=== PATIENT | male | born 2000 | race Caucasian/White ===

== ENCOUNTER 2022-02-15 07:02 | Day surgery (SDC) | payer BC, SELFPAY ==
[2022-02-15] VITALS (11 sets, daily range): BP systolic 114–169; BP diastolic 63–99; PULSE 42–56; RESP 10–18; TEMP 36.3–36.9; O2SAT 100
--- NOTE | ~2022-02-15 | CT_ITS ---
EXAMINATION: CT abdomen pelvis w con INDICATION: Abdominal pain and nausea TECHNIQUE: Computed tomographic images of the abdomen and pelvis were obtained after the administrati on of 100 cc of Omnipaque 350 intravenous contrast. The dose-length product (DLP) was 273.73 mGy-cm. Automated exposure control and iterative reconstruction technique were employed. COMPARISON: None available FINDINGS: The lung bases are clear. The heart size is normal. The liver, pancreas, gallbladder, and a drenal glands are normal. There is a 12 mm cyst of the spleen. The kidneys are unremarkable. No patho logically enlarged abdominal or pelvic lymph nodes are identified. There is no free intraperitoneal g as or evidence of bowel obstruction. There is mild wall thickening of the dilated appendix which rc ures up to 8 mm. IMPRESSION: 1. Mildly dilated appendix consistent with early acute appendicitis. Correlate for right lower quadra nt pain. Reviewed, dictated and finalized at location A. IMPRESSION: 1. Mildly dilated appendix consistent with early acute appendicitis. Correlate for right lower quadrant pain.
--- NOTE | 2022-02-15 07:29 | ED.ABDPAIN ---
HPI - Abdominal Pain General Chief Complaint: Abdominal Pain Stated Complaint: epigastric pain/upper abdominal pain Time Seen by Provider: 02/15/22 07:04 Source: RN notes reviewed History of Present Illness HPI narrative: Patient presents emergency room from home for abdominal pain. Patient states has had pain for the past 2 days pain is up and look in epic gastric and left upper quadrant does not radiate pain is described as burning in nature. States that has been associated with nausea and vomiting x1. Denies any fevers or chills chest pain shortness of breath diarrhea or any other symptoms states he tried taking ibuprofen for the pain last night with minimal Related Data Home Medications Medication Instructions Recorded Confirmed No Home Medications 02/15/22 02/15/22 Allergies Allergy/AdvReac Type Severity Reaction Status Date / Time No Known Allergies Allergy Verified 02/15/22 07:02 Review of Systems Review of Systems: Gen.: Denies fevers or chills ENT: Denies congestion Respiratory: Denies shortness of breath or cough CV: Denies chest pain or palpitations GI: See HPI Musculoskeletal: Denies back pain or muscle pain Neuro: Denies numbness, tingling, weakness or focal weakness Skin: Denies rash Except as documented, all other systems reviewed and negative PMFSH Past Medical History Medical History (Updated 02/15/22 @ 11:22 by Sloan Banks DO) Patient denies significant medical history Social History Social History (Updated 02/15/22 @ 07:30 by Sloan Banks DO) Smoking status: Never smoker Exam Narrative: APPEARANCE: No acute distress, nontoxic, resting in bed HEENT: Normocephalic, atraumatic, OMM RESPIRATORY: No respiratory distress, clear to auscultation bilaterally with no rhonchi wheezing or rales CARDIOVASCULAR: RRR s murmur ABDOMINAL: Soft nondistended tender palpation epigastric and left upper quadrant no tenderness in right upper quadrant, right lower quadrant left lower quadrant no rebound or guarding MUSCULOSKELETAl: Moves all extremities. No clubbing, cyanosis or edema. NEURO: Awake and alert. Following commands, speech normal, no focal deficits SKIN:: Warm, dry. Normal Color PSYCHIATRIC: Normal affect/mood Course Course Emergency Course: Following CT scan examined patient patient is tender in the right lower quadrant Discussed with Dr. Kaba that this time of Ruth came down to evaluate the patient request patient started on Zosyn ruth down to evaluate patient discussed with Dr. Kaba will take patient to the OR at this time Discussed with patient plan for or in agreement Vital Signs Vital signs: Vital Signs Temperature 98.4 F 02/15/22 07:08 Pulse Rate 48 L 02/15/22 07:08 Respiratory Rate 18 02/15/22 07:08 Blood Pressure 158/94 H 02/15/22 07:08 Pulse Oximetry 100 02/15/22 07:08 Oxygen Delivery Room Air 02/15/22 07:08 Temperature 98.4 F 02/15/22 07:08 Pulse Rate 51 L 02/15/22 11:01 Respiratory Rate 18 02/15/22 11:01 Blood Pressure 169/99 H 02/15/22 11:01 Pulse Oximetry 100 02/15/22 11:01 Oxygen Delivery Room Air 02/15/22 07:08 MDM - Abdominal Pain Lab Data Result diagrams: 02/15/22 07:19 02/15/22 07:19 Labs: Lab Results 02/15/22 02/15/22 02/15/22 Range/Units 07:19 07:19 07:19 WBC 5.0 (4.5-10.0) K/mm3 RBC 5.41 (4.6-6.20) M/mm3 Hgb 16.0 (14.0-18.0) g/dL Hct 46.5 (42.0-52.0) % MCV 86.0 (80-100) fl MCH 29.6 (26-34) pg MCHC 34.4 (32-36) g/dl RDW 12.6 (11.5-14.5) % Plt Count 192 (150-375) k/mm3 MPV 10.3 (7.4-10.4) fl Immature Gran % (Auto) 0.2 (0-0.5) % Neut % (Auto) 65.4 (45.5-73.1) % Lymph % (Auto) 22.0 (18.3-44.2) % Blount % (Auto) 9.8 H (2.6-8.5) % Eos % (Auto) 2.0 (0-4.4) % Baso % (Auto) 0.6 (0.2-1.2) % Lymph # (Auto) 1.10 (0.9-3.2) K/mm3 Blount # (Auto) 0.5 (0.1-0.6) K/mm3 Eos # (Auto
[2022-02-15 07:37] LABS: Basophils Percent Auto 0.6 % (0.2-1.2); Eosinophils Absolute Auto 0.1 K/mm3 (0-0.3); Hematocrit 46.5 % (42.0-52.0); Immature Granulocyte Absolute 0.01 K/mm3 (0.00-0.031); Immature Granulocyte Percent A 0.2 % (0-0.5); Mean Corpuscular HGB Conc 34.4 g/dl (32-36); Mean Corpuscular Hemoglobin 29.6 pg (26-34); Mean Platelet Volume 10.3 fl (7.4-10.4); Monocytes Absolute Auto 0.5 K/mm3 (0.1-0.6); Monocytes Percent Auto 9.8 % (2.6-8.5); Neutrophils Absolute Auto 3.3 K/mm3 (1.3-6.7); Neutrophils Percent Auto 65.4 % (45.5-73.1); Platelet Count Result 192 k/mm3 (150-375); Red Blood Count 5.41 M/mm3 (4.6-6.20); Red Cell Distribution Width 12.6 % (11.5-14.5)
[2022-02-15 07:41] LABS: Appearance Urine Clear (Clear); Bilirubin Urine Negative (Negative); Blood Urine Negative (Negative); Color Urine Yellow (Yellow); Glucose Urine UA Negative (Negative); Ketones Urine Negative (Negative); Leukocyte Esterase Ur 1+ LEU/UL (Negative); Nitrate Urine Negative (Negative); Protein Urine Negative (Negative); Specific Grav Ur 1.025 (1.001-1.035)
[2022-02-15 07:47] LABS: Alanine Aminotransferase 31 U/L (6-50); Alkaline Phosphatase 74 U/L (38-126); Anion Gap 12 mmol/L (8-16); Aspartate Amino Transferase 38 U/L (17-59); Bilirubin,Total 1.6 mg/dL (0.2-1.3); Blood Urea Nitrogen 7 mg/dL (9-20); Calcium 9.6 mg/dL (8.4-10.2); Carbon Dioxide 27 mmol/L (22-30); Chloride 100 mmol/L (98-107); Estimated CRCL calculation 114 ml/min; Estimated Glomerular Filt Rate > 60; Glucose 106 mg/dL (65-110); Lipase 80 U/L (23-300); Potassium 3.8 mmol/L (3.4-5.0); Sodium 139 mmol/L (137-145)
[2022-02-15 07:55] LABS: Add Urine Microscopic? YES; Amorphous Sediment Urine Few; Mucus Urine Rare /lpf; RBC Urine 0-2 /hpf (0-2)
[2022-02-15] MEDS: SODIUM CHLORIDE 0.9% IV 1,000 ML 999 ML IV CONT (09:33)
[2022-02-15] MEDS: KETOROLAC 30 MG/ML VIAL (*BKC) IV PUSH (09:33)
--- NOTE | 2022-02-15 11:49 | PM.HPGS ---
History of Present Illness History of Present Illness Consent: Risks, benefits, and alternatives have been discussed and questions answered. Patient agrees to proceed with procedure. Chief complaint: epigastric pain/upper abdominal pain Narrative: Abimael Ha is a 22 year old male who we have been asked to see in the ER for surgical evaluation of possible acute appendicitis. He first noticed pain 2 days ago around 3:00 p.m. in the afternoon. Initially, his pain was in the epigastric and left upper quadrant area. He thought it may have been related to something he ate for lunch, so he forced himself to vomit. His pain did not improve. That night, he continued to have the same pain and it woke him up from sleep a few times throughout the night. Yesterday, he felt the pain was slightly better in the morning, but around 3:00 p.m. yesterday the pain became more severe. This has persisted and he decided come into the ER for further evaluation. CT scan of the abdomen and pelvis shows an 8 mm appendix with mild wall thickening, suggesting possible acute early appendicitis. His labs are unremarkable. He is now seen in the ER with his parents at the bedside. He reports over the past few hours his pain has now localized to the right lower quadrant. Prior to today, he felt it was more diffuse across his upper abdomen. He had no relief with a GI cocktail given in the ER, but did feel his pain started improving slightly after the Toradol he was given. He denies fever or chills. Denies ever having this pain in the past. He had 1 loose stool yesterday, but denies diarrhea. No previous abdominal surgeries. Review of Systems Review of Systems: All systems reviewed & are unremarkable except as noted in HPI and below Constitutional: Constitutional: Reports no additional constitutional complaints, Denies chills, Denies fatigue, Denies fever(s), Reports headache(s) (yesterday, resolved with tylenol) and Reports poor appetite Eyes: Eyes: Reports no additional eye complaints ENT: Reports system reviewed and no additional complaints, except as documented Cardiovascular: Cardiovascular: Reports no additional cardiovascular complaints, Denies chest pain and Denies leg edema Respiratory: Respiratory: Reports no additional respiratory complaints, Denies cough and Denies dyspnea Gastrointestinal: Gastrointestinal: Reports as per HPI, Reports no additional gastrointestinal complaints, Reports abdominal pain, Denies melena, Denies hematochezia, Denies coffee ground emesis, Denies constipation, Denies diarrhea, Reports loose stools, Denies nausea and Reports vomiting Genitourinary: Genitourinary: Reports no additional male genitourinary complaints Musculoskeletal: Musculoskeletal: Reports no additional musculoskeletal complaints Integumentary/Breasts: Skin/Breast: Reports system reviewed and no additional complaints, except as docu Neurologic: Reports system reviewed and no additional complaints, except as documented, Denies dizziness, Denies focal weakness, Denies numbness and Denies tingling PMFSH Past Medical History Medical History Patient denies significant medical history Surgical History Surgical History No pertinent past surgical history Family History Family History Other No pertinent family history Social History Social History Smoking status: Never smoker Alcohol intake: current Alcohol use details: Occasional Substance use: never Occupation/Education: occupation Additional occupation/education comments: Works in a [employer] Gender identity (if verbalized by the patient): Male Meds Home Medications and Allergies Home Medications Medication Instructions Recorded Confirmed Type No Home Medica
--- NOTE | 2022-02-15 11:52 | WPDANESEPPF ---
Anes - Initial Pre Proc Eval Procedure: Operation Date: 02/15/22 14:30 Proposed Procedures p Laparoscopic Appendectomy; Possible Open - Richard Kaba MD Date/Time: 02/15/22 11:52 Surgeon: Richard Kaba MD Pre Op Diagnosis: epigastric pain/upper abdominal pain Patient Data Age: 22 Gender: M Height: 1.83 m Weight: 72 kg Last Vital Signs Temp 36.9 C 02/15/22 07:08 Pulse 51 L 02/15/22 11:01 Resp 18 02/15/22 11:01 BP 169/99 H 02/15/22 11:01 Pulse Ox 100 02/15/22 11:01 O2 Del Method Room Air 02/15/22 07:08 Allergies Allergy/AdvReac Type Severity Reaction Status Date / Time No Known Allergies Allergy Verified 02/15/22 07:02 Home Medications Medication Instructions Recorded Confirmed Type No Home Medications 02/15/22 02/15/22 History Laboratory Tests 02/15/22 02/15/22 02/15/22 07:19 07:19 07:19 WBC 5.0 K/mm3 K/mm3 (4.5-10.0) RBC 5.41 M/mm3 M/mm3 (4.6-6.20) Hgb 16.0 g/dL g/dL (14.0-18.0) Hct 46.5 % % (42.0-52.0) MCV 86.0 fl fl (80-100) MCH 29.6 pg pg (26-34) MCHC 34.4 g/dl g/dl (32-36) RDW 12.6 % % (11.5-14.5) Plt Count 192 k/mm3 k/mm3 (150-375) MPV 10.3 fl fl (7.4-10.4) Immature Gran % (Auto) 0.2 % % (0-0.5) Neut % (Auto) 65.4 % % (45.5-73.1) Lymph % (Auto) 22.0 % % (18.3-44.2) Gilpin % (Auto) 9.8 % H % (2.6-8.5) Eos % (Auto) 2.0 % % (0-4.4) Baso % (Auto) 0.6 % % (0.2-1.2) Lymph # (Auto) 1.10 K/mm3 K/mm3 (0.9-3.2) [place] # (Auto) 0.5 K/mm3 K/mm3 (0.1-0.6) Eos # (Auto) 0.1 K/mm3 K/mm3 (0-0.3) Baso # (Auto) 0.0 K/mm3 K/mm3 (0.0-0.1) Abs Immat Gran (auto) 0.01 K/mm3 K/mm3 (0.00-0.031) Absolute Neuts (auto) 3.3 K/mm3 K/mm3 (1.3-6.7) Absolute Nucleated RBC 0.0 K/mm3 K/mm3 (0.0-0.012) Nucleated RBC % 0.0 % % (0.0-0.2) Sodium 139 mmol/L mmol/L (137-145) Potassium 3.8 mmol/L mmol/L (3.4-5.0) Chloride 100 mmol/L mmol/L (98-107) Carbon Dioxide 27 mmol/L mmol/L (22-30) Anion Gap 12 mmol/L mmol/L (8-16) BUN 7 mg/dL L mg/dL (9-20) Creatinine 0.90 mg/dL mg/dL (0.7-1.3) Estim Creat Clear Calc 114 ml/min ml/min Estimated GFR > 60 (59 - ) Glucose 106 mg/dL mg/dL (65-110) Calcium 9.6 mg/dL mg/dL (8.4-10.2) Total Bilirubin 1.6 mg/dL H mg/dL (0.2-1.3) AST 38 U/L U/L (17-59) ALT 31 U/L U/L (6-50) Alkaline Phosphatase 74 U/L U/L (38-126) Total Protein 8.0 g/dL g/dL (6.3-8.2) Albumin 5.0 g/dL g/dL (3.5-5.1) Lipase 80 U/L U/L (23-300) Urine Color Yellow (Yellow) Urine Appearance Clear (Clear) Urine pH 7.0 (5.0-9.0) Ur Specific Moodus 1.025 (1.001-1.035) Urine Protein Negative mg/dL mg/dL (Negative) Urine Glucose (UA) Negative mg/dL mg/dL (Negative) Urine Ketones Negative mg/dL mg/dL (Negative) Ur Blood (Man) Negative (Negative) Urine Nitrate Negative (Negative) Urine Bilirubin Negative (Negative) Urine Urobilinogen 1.0 mg/dL mg/dL (<2.0) Leukocyte Esterase Rfl 1+ ALEC/UL H ALEC/UL (Negative) Urine RBC 0-2 /hpf /hpf (0-2) Urine WBC 4-6 /hpf H /hpf Amorphous Sediment Few H (None) Urine Mucus Rare /lpf /lpf Patient hx anesthesia problems: none Family hx anesthesia problems: none Results Review: All pre-operative results and documents have been reviewed as part of the pre-operative evaluation. [facility] Past Medical History Medical History (Updated 02/15/22 @ 11:22 by Sloan Banks DO) Patient denies s
--- NOTE | 2022-02-15 12:08 | WPDHPUPDATE1 ---
History and Physical Update Update Date/Time: 02/15/22 12:08 History and Physical has been reviewed, including an updated exam of the patient. There are NO changes in the patient's condition. Risks, benefits, and alternatives have been discussed and questions answered. Patient agrees to proceed with procedure.
[2022-02-15] MEDS: LACTATED RINGERS 1,000 ML 30 ML IV CONT ×2 (12:12→13:26)
[2022-02-15] MEDS: BUPIVACAINE/EPINEPHRINE 0.25% 50 ML VIAL INFILTRATE (13:07)
--- NOTE | 2022-02-15 13:24 | P.OP_ITS ---
Procedure Note - Detailed Date of Procedure 02/15/22 Pre-op Diagnosis Acute appendicitis Post-op Diagnosis Same Procedure Performed Laparoscopic appendectomy Surgeon Richard Kaba MD [employer] Tracy Rangel [facility] Anesthesia General and Local (0.25% Marcaine with epinephrine) Indications Patient is a 22-year-old man who has been having epigastric abdominal pain for about 2 days. Today this pain moved in to start a new localizing right lower quadrant. He came to the emergency room. He was noted to have tenderness in the right lower quadrant but his white blood cell count was normal. CT scan showed a dilated appendix of 8 mm with some wall thickening. He is taken to surgery now for laparoscopic appendectomy. Findings Appendix was dilated at its distal 2/3 with more inflammation at the distal aspect of the appendix then the rest of the appendix. It appeared to be early acute appendicitis. Description of Procedure The patient was taken to surgery and induced into general anesthesia. The abdomen is prepped and draped. Trocars were placed in the usual fashion using local anesthetic and applied Medical optical trocars. A 5 mm camera was used. Patient was placed in Trendelenburg with the right-side elevated. The appendix was found and was freed from some adhesions to the right pelvic sidewall. It was then elevated and examined. Findings were as above. Dissection was carried out in the mesoappendix. The appendiceal artery was dissected and was then thoroughly cauterized and divided. We skeletonized the base of the appendix. A Vicryl endoloop was used to ligate the appendix at its base. Appendix was then amputated just above the ligature. The mucosa of the appendiceal stump was cauterized. Appendix was placed into an Endo-Catch bag and retrieved through the 10 11 left lower quadrant trocar site. We then replaced the trocar and reviewed the right lower quadrant and areas of dissection. All looked good with no evidence of bleeding or other issues. We then evacuated CO2 and removed the trocar sleeves. Skin wounds were closed with subcuticular 4-0 Monocryl skin suture. The wounds were dressed with Exofin surgical adhesive. The patient was awakened and taken to recovery in good condition. Sponge needle counts were correct x2. Estimated Blood Loss -5 Drains No Packing No Pathology Yes (Appendix) Complications No immediate complications Condition Stable Disposition PACU [facility] Billing Surgery - Charge Forward: Surgery Billing (Laparoscopic appendectomy)
[2022-02-15] MEDS: oxyCODONE HCL (*CRX) 5 MG TAB IR PO (15:08)
== END 2022-02-15 15:38 | disposition home or self-care (01) ==
LOC: ANHED 11:22 → ANHSURGERY 11:32
PROVIDERS: Emergency Provider Emergency Medicine; Visit Provider Surgery
PROC: 0DTJ4ZZ Resection of Appendix, Percutaneous Endoscopic Approach (ICD-10-PCS; CPT 44970; principal; 2022-02-15 14:30)
DX: K35.80 Unspecified acute appendicitis (principal)
CPT/HCPCS: 44970; 36415; 74177; 80053; 81001; 83690; 85025; 88304; 96361; 96374; 96375; 99285; A9270; J1100; J1885; J2250; J2405; J2543; J2704; J2710; J3010; J7030; J7120; Q9967

== ENCOUNTER 2022-02-21 23:54 | Emergency (ER) | payer BC, OTHER, SELFPAY ==
[2022-02-22] VITALS: BP 163/106; PULSE 82; RESP 18; TEMP 36.6; O2SAT 100
--- NOTE | 2022-02-22 00:24 | PC.NURSE ---
Patient approached nurses station and informed RN that he was going to go be seen somewhere else due to long wait times. Patient alert and ambulatory upon leaving the ED.
--- NOTE | 2022-02-22 00:30 | PC.NURSE ---
Per Cristel Mcmillan, RN, pt left without being seen at 0030.
== END 2022-02-22 00:30 | disposition left against medical advice (07) ==
LOC: ANHED 02-22 00:33
PROVIDERS: PCP Surgery
DX: R10.13 Epigastric pain (principal)
CPT/HCPCS: 99199

== ENCOUNTER 2022-02-26 06:50 | Emergency (ER) | payer BC, OTHER, SELFPAY ==
[2022-02-26] VITALS (11 sets, daily range): BP systolic 128–151; BP diastolic 84–110; PULSE 60–82; RESP 18; TEMP 36.2; O2SAT 95–100
--- NOTE | ~2022-02-26 | US_ITS ---
US abdomen limited INDICATION: Abdomen pain PROCEDURE: Realtime right upper abdominal ultrasound. COMPARISON: No prior studies for comparison. FINDINGS: The pancreas is normal without focal mass or pancreatic ductal dilation. Liver echotexture is normal without focal mass or intrahepatic biliary dilatation. There is normal directional flow i n the portal vein. The gallbladder is normal without stones, gallbladder wall thickening or pericholecystic fluid. Comm on bile duct measures 3 mm. No sonographic Milton's sign. IMPRESSION: 1: Normal limited abdominal ultrasound. Reviewed, dictated and finalized at location A.
--- NOTE | 2022-02-26 07:14 | ED.GENADULT ---
HPI - General Adult General Chief complaint: Abdominal Pain Stated complaint: upper ABD pain Time Seen by Provider: 02/26/22 07:03 Source: RN notes reviewed History of Present Illness HPI narrative: Patient presents emergency department from home for abdominal pain. Patient states abdominal pain began yesterday the pain is located across the upper abdomen described as sharp and cramping in nature states the pain does not radiate. States he has been having similar episodes over the past month he had an episode this past Sunday I come to our emergency department but the wait was too long and gone to [place] states at that time he had a CT scan that was normal as well as a negative work-up. The patient been in our facility on 02/15 and had similar pain and also was found to have appendicitis at that time and had been taken to surgery by Dr. Kaba states he has been feeling well postsurgery he reports mild nausea with the symptoms he denies any vomiting or diarrhea denies any fevers or any other symptoms Related Data Allergies Allergy/AdvReac Type Severity Reaction Status Date / Time No Known Allergies Allergy Verified 02/26/22 06:51 Review of Systems Review of Systems: Gen.: Denies fevers or chills ENT: Denies congestion Respiratory: Denies shortness of breath or cough CV: Denies chest pain or palpitations GI: See HPI denies burning, urgency, frequency or hematuria Musculoskeletal: Denies back pain or muscle pain Neuro: Denies numbness, tingling, weakness or focal weakness Skin: Denies rash Except as documented, all other systems reviewed and negative PMFSH Past Medical History Medical History Patient denies significant medical history Surgical History Surgical History No pertinent past surgical history Family History Family History Other No pertinent family history Social History Social History Smoking status: Never smoker Alcohol intake: current Alcohol use details: Occasional Substance use: never 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 No clubbing, cyanosis or edema. NEURO: Awake and alert. Following commands, speech normal, no focal deficits SKIN:: Warm, dry. Normal Color PSYCHIATRIC: Normal affect/mood Course Course Emergency Course: Obtain records from [facility] where patient had a CT scan performed on 02/22/2022 that time it showed mild splenomegaly a small hypodense 1 cm lesion was spinning that is likely a small cyst or benign hemangioma then a small amount of inflammatory fat stranding in the right lower quadrant adjacent to the cecum compatible with recent surgical intervention. No fluid collection Discussed with Dr. Kate presentation work-up we reviewed the CT scan this time believe patient does not require CT scan feels patient may be discharged to follow-up as an outpatient patient states that they are feeling much better at this time. States abdominal pain has improved.. Repeat abdominal exam shows the patient's abdomen to be soft with no surgical abdomen present.. Discussed with patient results of workup and diagnosis. Discussed need for
[2022-02-26 07:20] LABS: Basophils Percent Auto 0.5 % (0.2-1.2); Eosinophils Absolute Auto 0.1 K/mm3 (0-0.3); Eosinophils Percent Auto 0.9 % (0-4.4); Hematocrit 45.5 % (42.0-52.0); Hemoglobin 16.4 g/dL (14.0-18.0); Immature Granulocyte Absolute 0.02 K/mm3 (0.00-0.031); Immature Granulocyte Percent A 0.3 % (0-0.5); Lymphocytes Absolute Auto 1.09 K/mm3 (0.9-3.2); Mean Corpuscular Hemoglobin 29.9 pg (26-34); Mean Corpuscular Volume 82.9 fl (80-100); Mean Platelet Volume 9.7 fl (7.4-10.4); Monocytes Absolute Auto 0.6 K/mm3 (0.1-0.6); Monocytes Percent Auto 7.3 % (2.6-8.5); Platelet Count Result 208 k/mm3 (150-375); Red Blood Count 5.49 M/mm3 (4.6-6.20); Red Cell Distribution Width 12.1 % (11.5-14.5); White Blood Count 7.8 K/mm3 (4.5-10.0)
[2022-02-26] MEDS: FAMOTIDINE 20 MG/2 ML VIAL IV PUSH (07:22)
[2022-02-26] MEDS: SODIUM CHLORIDE 0.9% IV 1,000 ML 999 ML IV CONT (07:22)
[2022-02-26] MEDS: KETOROLAC 30 MG/ML VIAL (*BKC) IV PUSH (07:23)
--- NOTE | 2022-02-26 07:24 | PC.NURSE ---
Release of Medical Records faxed to [facility]
[2022-02-26 07:25] LABS: Add Urine Microscopic? YES; Appearance Urine Clear (Clear); Bilirubin Urine Negative (Negative); Blood Urine 1+ (Negative); Color Urine Yellow (Yellow); Glucose Urine UA Negative (Negative); Ketones Urine Negative (Negative); Leukocyte Esterase Ur Negative LEU/UL (Negative); Mucus Urine Rare /lpf; Nitrate Urine Negative (Negative); Protein Urine Negative (Negative); RBC Urine 0-2 /hpf (0-2); Specific Grav Ur 1.025 (1.001-1.035); Squamous Epithelial Cell Urine Rare /hpf (Few); Urobilinogen Urine Negative mg/dL (<2.0); WBC Urine 0-3 /hpf
[2022-02-26 07:41] LABS: Alanine Aminotransferase 25 U/L (6-50); Albumin Level 5.1 g/dL (3.5-5.1); Alkaline Phosphatase 89 U/L (38-126); Anion Gap 17 mmol/L (8-16); Aspartate Amino Transferase 23 U/L (17-59); Bilirubin,Total 1.3 mg/dL (0.2-1.3); Blood Urea Nitrogen 11 mg/dL (9-20); Calcium 10.1 mg/dL (8.4-10.2); Carbon Dioxide 26 mmol/L (22-30); Chloride 100 mmol/L (98-107); Estimated CRCL calculation 108 ml/min; Estimated Glomerular Filt Rate > 60; Glucose 110 mg/dL (65-110); Lipase 88 U/L (23-300); Potassium 3.7 mmol/L (3.4-5.0); Sodium 143 mmol/L (137-145)
== END 2022-02-26 10:35 | disposition home or self-care (01) ==
PROVIDERS: Emergency Provider Emergency Medicine; PCP Surgery
DX: R10.10 Upper abdominal pain, unspecified (principal)
CPT/HCPCS: 36415; 76705; 80053; 81001; 83690; 85025; 96361; 96374; 96375; 99284; A9270; J1885; J7030

== ENCOUNTER 2024-07-05 08:15 | Emergency (ER) | payer OTHER, SELFPAY ==
--- NOTE | 2024-07-05 08:16 | ED.EAR ---
HPI - Ear Problem General Chief complaint: Ear Stated complaint: LT Ear Pain Time Seen by Provider: 07/05/24 08:16 Source: patient Mode of arrival: ambulatory Limitations: no limitations History of Present Illness HPI Narrative: Patient is a 24-year-old male who presents with left ear pain. It started last night and went away with Tylenol but returned this morning even worse. Patient states it feels like he has ear plug in his ear. Denies any congestion, sore throat cough fever, chills nausea diarrhea. Complaint: ear pain Related Data Allergies Allergy/AdvReac Type Severity Reaction Status Date / Time No Known Allergies Allergy Verified 07/05/24 08:26 Review of Systems Review of Systems: All systems reviewed & are unremarkable except as noted in HPI and below Constitutional: Constitutional: Denies body ache(s), Denies chills, Denies fever(s), Denies headache(s) and Denies malaise Eyes: Eyes: Denies blurry vision, Denies eye discharge and Denies irritation ENT: Reports otalgia, Denies headache(s), Denies nasal congestion, Denies nasal discharge and Denies sore throat Cardiovascular: Cardiovascular: Denies chest pain, Denies edema, Denies palpitations and Denies dyspnea on exertion Respiratory: Respiratory: Denies cough and Denies dyspnea on exertion Gastrointestinal: Gastrointestinal: Denies abdominal pain, Denies diarrhea, Denies nausea and Denies vomiting Musculoskeletal: Musculoskeletal: Denies back pain, Denies arthralgias and Denies muscle weakness Integumentary/Breasts: Skin/Breast: Denies pruritus and Denies rash Neurologic: Denies headache(s) Psychiatric: Psychiatric: Reports no additional psychiatric complaints Endocrine: Endocrine: Denies palpitations PMFSH Past Medical History Medical History Patient denies significant medical history Surgical History Surgical History No pertinent past surgical history Family History Family History Other No pertinent family history Social History Social History Smoking status: Never smoker Alcohol intake: current Alcohol use details: Occasional Substance use: never Occupation/Education: occupation 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 There is no relevant family history pertinent to the presenting complaint? Exam Const: General: cooperative, healthy appearing, no acute distress and well nourished Nutritional Appearance: well nourished Orientation/consciousness: patient oriented x3 Limitations: no limitations HENMT: Head: normal to inspection, normocephalic and atraumatic Ears: hearing grossly normal bilaterally, EAC's normal, no periauricular adenopathy and TM abnormal bulging on the left and erythematous on the left Face/Nose/Sinus: Normal external nose present, Normal nares present, Normal nasal mucous membranes and turbinates present, No nasal discharge present, normal facial exam and sinuses nontender Face and sinus: normal facial exam and sinuses nontender Mouth: Yes Normal oral and palatal mucosa present, Yes lip normal, Yes tongue normal and Yes moist mucous membranes Throat: posterior oropharynx normal, tonsils normal and uvula midline Eyes: General: appearance normal, both eyes and all related structures Alignment and Position: alignment normal and position normal Eyelids: eyelids normal Pupils: Equal, round and reactive pupils present EOM: EOMs intact bilaterally Neck: Neck: normal visual inspection, full ROM, no lymphadenopathy and supple Chest: Chest palpation & inspection: normal inspection of the chest Resp: Effort & Inspection: normal respiratory effort and able to speak in complete sentences Auscultation: clear to auscultation bilaterally, no crackles, no rales, no rhonchi and no wheezes Cardio: Rate: regular rate Rhythm: regular rhythm Heart sounds: S1 normal heart sound present and S2 normal heart sound present Skin: General skin exam: normal color and no rashes or lesions noted Neuro: General: patient oriented x3 and moves all extremities Cranial nerves: Yes Equal, round and reactive pupils present Cognition (Neuro): normal cognition Speech: normal speech Gait exam (Neuro): Normal gait present Extrem: General: normal to inspection and full ROM Psych: Appearance: grossly normal and well kempt Mental Status: mental status grossly normal Speech and movement: Normal speech and movement present Course Course Emergency Course: Patient is aware of diagnosis, understands and agrees to treatment plan.? Anticipatory guidance given.? Patient agrees to follow-up as directed and is aware of reasons to seek care at the emergency department.? Portions of this record may have been created with voice recognition software? Level of Care: Express Care Visit Vital Signs Vital signs: Reviewed Medical Decision Making MDM Narrative Medical decision making narrative: Pt well hydrated appearing, in no respiratory distress, hemodynamically stable. Recommend supportive care. The patient is stable at time of discharge the clinical impression was discussed and the patient was given the opportunity to ask questions, which were addressed as completely as possible given the information available at present. Anticipatory guidance and return to care precautions were discussed and the importance of primary care follow-up was stressed and encouraged. The patient voiced understanding of the plan, indications to return, and the need for follow-up. Exam findings show no acute concerns or changes Patient is appropriate for outpatient treatment and follow-up. Differential diagnosis considered: Duncan virus, strep pharyngitis, allergic rhinitis, upper respiratory tract infection, sinusitis, rhinosinusitis, nasopharyngitis. viral pharyngitis, otitis media, otitis externa, otitis effusion, foreign body, cerumen impaction, viral syndrome, and influenza.? Medical Records Medical records reviewed: Yes I reviewed the external patient's medical records. Discharge Plan Discharge Clinical Impression: Otitis media Qualifiers: Otitis media type: suppurative Chronicity: acute Laterality: left Recurrence: non-recurrent Spontaneous tympanic membrane rupture: without spontaneous rupture Qualified Code(s): H66.002 - Acute suppurative otitis media without spontaneous rupture of ear drum, left ear Patient Disposition: Home, Self-Care Condition: Stable Instructions: Ear Infection (GEN) Additional Instructions: Take antibiotics as directed. Recommend antihistamine such as Benadryl at night time and Zyrtec or Kim during the day until symptoms improve Flonase nasal spray, 1 spray in each nostril once daily until symptoms improve Also, recommend symptomatic treatment includes: rest, fluids, and increase humidity of the air at home. Recommend Acetaminophen as directed on the bottle to reduce fever, pain Please schedule a follow-up visit with your personal physician for further evaluation and treatment within 3-5days. If your symptoms persist, change or worsen significantly before you can contact your personal physician then please, without delay, go to the emergency department for further evaluation. Patient Language: Serbian Prescriptions: New amoxicillin 875 mg tablet 875 mg PO Q12H 7 Days Qty: 14 0RF fluticasone propionate [Flonase Allergy Relief] 50 mcg/actuation spray,suspension 1 spray intranasal DAILY Qty: 16 0RF Rx Instructions: administer into each nostril Follow-up/Referrals: Tani Natarajan MD [Physician] - 3 Days UNKNOWN,DOCTOR [Non-Staff] - Time of Disposition: 08:31
--- OUTSIDE RECORDS SUMMARY | 2024-07-05 08:17 | XMS_ITS | Patient Health Summary ---
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 consent obtained, Pre-op evaluation done, Questions answered/anesthesia questions answered, Allergies reviewed and Removal hand/wrist jewelry Monitors: BP, Pulse Ox, EKG and ETCO2. Patient Condition: awake Patient Position: supine Patient Sedated? No Procedure Section Laterality: left Block Performed: supraclavicular Prep: Chloraprep Strerile Field: gloves, mask, hat/cap, patient draped and sterile ultrasound sleeve Skin localized with: lidocaine (XYLOCAINE) 1 % injection - Infiltration 3 mL - 02/23/2023 1:30:00 PM Needle Type: Echogenic insultaed Needle Gauge: 21 Needle Length: 90 mm Needle Depth: 2 cm Catheter? No Ultrasound Guided? Yes Technique: in plane Visualization: Preliminary scan performed, Important anatomical structures identified, Needle tip visualized throughout the procedure, Target identified, No intraneural or intravascular puncture occurred, Ultrasound image in chart, Local visualized surrounding nerve on ultrasound and Hydrodissection utilized Injection Assessment: Slow fractionated injection Block Agents or Additives used? Yes Block agents used: bupivacaine PF (MARCAINE PF) 0.5 % injection - Infiltration 20 mL - 02/23/2023 1:34:00 PM lidocaine (XYLOCAINE) 2 % injection - Infiltration 10 mL - 02/23/2023 1:34:00 PM dexamethasone (DECADRON) 4 mg/mL injection - Infiltration 4 mg - 02/23/2023 1:34:00 PM Procedure Tolerance: tolerated well Assessment: completed Procedure Start Time: 02/23/2023 1:30 PM. Procedure End Time: 02/23/2023 1:34 PM. Procedure Total Time: 4 minutes. Staff Section Anesthesia Provider: Terence Hurst MD Provider #1: Darion Porter MD, Performed the procedure. Additional Comments: .I was personally present for the entire procedure and supervised this nerve block. . Marly Franco MD GENERAL ANESTHESIA ORDERABLES * FL GUDELIA SURGERY (02/23/2023 1:03 PM CDT) Narrative [facility] - 02/23/2023 1:03 PM CDT Fluoroscopy was used for this exam in the OR. Please see the Operative report. Dean Zelaya MD FLUOROSCOPY ORDERABL ES [facility] * ETT LINE PERFORMABLE (02/23/2023 8:11 AM CDT) Narrative Kaur Harris Anes Asst - 02/23/2023 8:11 AM CDT Kaur Harris Anes Asst 02/23/2023 8:12 AM Endotracheal Tube Placement: Patient Location: OR. Intubation Event Date/Time: 02/23/2023 7:35 AM Procedure: intubation ([id number]). Procedure Section: Sedation: under general anesthesia. Indications for Airway Management: anesthesia Procedure pretreatments used? No Induction: standard IV Patient Position: supine Mask Ventilation: easy. Blade Type: Ron Blade Size: 4 Laryngoscopy View: grade 1 (full cords) Intubation Adjuncts: stylet and cricoid pressure Tube: endotracheal tube Placement: oral Tube type: cuff - inflated Tube Size (MM): 8 Depth of Insertion (CM): 22 Measured From: lips Cuff Inflated With: air Number of Attempts: 2 (1st attempt by ER resident). Ventilation between attempts: Yes. Placement Verified By: direct visualization, bilateral breath sounds, chest auscultation and CO2 monitor Tube secured with: adhesive tape. Dentition unchanged? Yes Difficult Airway? No. Procedure Start Time: 02/23/2023 7:35 AM. Staff Section Anesthesia Provider: Kaur Harris Anes Asst, Performed the procedure Additional Comments: DL X 1 with Mac 4 by ER resident - ETT in esophagus, DL X 1 with Mac 4 Gr 1 view with cricoid pressure by KH. Marly Franco MD GENERAL ANESTHESIA ORDERABLES * VITAMIN D 25-HYDROXY (02/23/2023 4:46 AM CDT) Vitamin D, 25 Hydroxy 43.0 30.0 - 80.0 ng/mL 02/23/2023 10:26 AM CDT [facility] Comment: The recommendations for 25-Hydroxy Vitamin D clinical decision points are as follows: Deficient: <20.0 ng/mL Insufficient: 20.0 - 29.9 ng/mL Sufficient: 30.0 - 100.0 ng/mL Potential Toxicity: >100 ng/mL Reference: The Endocrine Society Clinical Practice Guidelines. 2011 If the 25-Hydroxy Vitamin D results are inconsitent with clinical evidence, it is recommended that follow-up testing using a method such as LC/MS/MS be performed to confirm the result. Blood BLOOD SPECIMEN / Unknown Venipuncture / Unknown 02/23/2023 4:46 AM CDT 02/23/2023 4:55 AM CDT Tamra Max PA-C LAB - CHEMIS TRY ORDERABLES [facility] [address] [place] [address], [facility] [phone] * CT ELBOW LEFT WO CONTRAST (02/23/2023 2:29 AM CDT) Anatomical Region Laterality Modality Upper Extremity Computed Tomogra phy 02/23/2023 2:31 AM CDT Impressions 02/23/2023 8:07 AM CDT IMPRESSION: 1. Comminuted moderately displaced intra-articular distal humeral fracture. 2. Small amount of intra-articular gas could be due to traumatic arthrotomy or vacuum phenomenon. > Dictated by Lynn lEliott M.D. (md do resident urgent care). I, Juan Diego Whitt MD have personally reviewed and interpreted this examination/study. > Interpreting Provider: Juan Diego Whitt MD on 02/23/2023 8:07 AM Narrative 02/23/2023 8:07 AM CDT PROCEDURE: CT ELBOW LEFT WO CONTRAST DATE/TIME OF EXAM: 02/23/2023 2:30 AM CLINICAL INFORMATION: None relevant/not provided if blank. Indication: T14.90XA: Trauma COMPARISON: Left elbow radiograph dated 02/22/2023. TECHNIQUE: CT of the left elbow without contrast was performed utilizing standard protocol. FINDINGS/IMPRESSION: There is an acute, comminuted, moderately displaced supracondylar/intercondylar fracture of the distal humerus with intra-articular extension. There are several small intra-articular fracture fragments. The visualized proximal radius and ulna are intact. There is extensive soft tissue swelling. There is soft tissue gas. Small foci of gas are seen along the lateral aspect of the radiocapitellar articulation (series 5 image 77), adjacent to the medial aspect of the trochlea (series 5 image 82), and in the olecranon fossa (series 7 image 55-60) which appear to be intra-articular. There is an effusion. There is an external splint in place. Procedure Note Juan Diego Whitt MD - 02/23/2023 PROCEDURE: CT ELBOW LEFT WO CONTRAST DATE/TIME OF EXAM: 02/23/2023 2:30 AM CLINICAL INFORMATION: None relevant/not provided if blank. Indication: T14.90XA: Trauma COMPARISON: Left elbow radiograph dated 02/22/2023. TECHNIQUE: CT of the left elbow without contrast was performed utilizing standard protocol. FINDINGS/IMPRESSION: There is an acute, comminuted, moderately displaced supracondylar/intercondylar fracture of the distal humerus with intra-articular extension. There are several small intra-articularfracture fragments. The visualized proximal radius and ulna are intact. There is extensive soft tissue swelling. There is soft tissue gas. Small foci ofgas are seen along the lateral aspect of the radiocapitellar articulation (series 5 image 77), adjacent to the medial aspect of the trochlea(series 5 image 82), and in the olecranon fossa (series 7 image 55-60) whichappear to be intra-articular. There is an effusion. There is an external splintin place. IMPRESSION: 1. Comminuted moderately displaced intra-articular distal humeralfracture. 2. Small amount of intra-articular gas could be due to traumaticarthrotomy or vacuum phenomenon. > Dictated by Lynn Elliott M.D. (md do resident urgent care). I, Juan Diego Whitt MD have personally reviewed and interpreted this examination/study. > Interpreting Provider: Juan Diego Whitt MD on 02/23/2023 8:07 AM Hasmukh Sotelo MD CT ORDERABLES * SARS-COV-2 (COVID-19)+INFLU A+B PCR RAPID (02/22/2023 10:29 PM CDT) COVID-19 PCR Not detected Not detected 02/23/20 11:12 PM CDT [facility] Influenza A Rapid GRAHAM Not Detected Not Detected 02/22/2023 11:12 PM CDT [facility] Influenza B GRAHAM Rapid Not Detected Not Detected 02/22/2023 11:12 PM CDT [facility] Microbiology SPECIMEN FROM NASOPHARYNGEAL STRUCTURE / Unknown Collection / Unknown 02/22/2023 10:29 PM CDT 02/22/2023 10:32 PM CDT [facility] - 02/22/2023 11:12 PM CDT Influenza assay performed by Nucleic Acid Amplification. Results do not exclude the possibility of a mixed viral infection. NOTE: Detecting and identifying specific viral nucleic acids from individuals exhibiting signs and symptoms of respiratory infection aids in the diagnosis of respiratory infection, if used in conjunction with other clinical and laboratory findings. The results of this test should not be used as the sole basis for diagnosis, treatment, or patient management decisions. This nucleic acid amplification assay performance was validated by [facility]. This test has been authorized by the Food and Drug administration (FDA)under an Emergency Use Authorization (EUA). This test has been validated in accordance with the FDA's guidance document Policy for Diagnostic Testing in Laboratories Certified to perform High Complexity Testing under CLIA prior to Emergency Use Authorization for Coronavirus Disease-2019 during the Public Health Emergency issued on July 19, 2019. FDA independent review of this validation is pending. This test is only authorized for the duration of time the declaration that circumstances exist justifying the authorization of emergency use of in vitro diagnostic tests for detection of SARS-CoV-2 virus and/or diagnosis of COVID-19 infection under section 564(b)(1) of the Act, 21 U.S.C 360bbb-3 (b)(1), unless the authorization is terminated or revoked sooner. Fact Sheets for this EUA assay are available upon request. Sam Laureano MD LAB - MICROBIOLOGY O [facility] [address] [address], [facility] [phone] * XR FOOT RIGHT 3VW OR MORE (02/22/2023 8:53 PM CDT) Anatomical Region Laterality Modality Ankle / Foot Radiographic Aury ging 02/22/2023 9:23 PM CDT Impressions 02/23/2023 6:05 AM CDT IMPRESSION: No acute fracture or dislocation identified. Report dictated by Daryn Francis MD, PhD (md do resident urgent care). I, EM RAMIREZ MD have personally reviewed and interpreted this examination/study. > Interpreting Provider: EM RAMIREZ MD on 02/23/2023 6:05 AM Narrative 02/23/2023 6:05 AM CDT PROCEDURE: XR FOOT RIGHT 3VW OR MORE, DATE/TIME OF EXAM: 02/22/2023 8:53 PM, LOCATION [facility] INDICATION: T14.90XA: Trauma ADDITIONAL CLINICAL INFORMATION: Ordering Provider Reason For Exam: trauma Technologist Note: Additional: COMPARISON: None. FINDINGS: No acute fracture, dislocation, or osseous erosion.The Bohler angle measures 39 degrees. The joint spaces are preserved. Bone density and texture are normal. No soft tissue swelling is present. No radiopaque foreign body is detected. Procedure Note Em Ramirez MD - 02/23/2023 PROCEDURE: XR FOOT RIGHT 3VW OR MORE, DATE/TIME OF EXAM: 38:53 PM, LOCATION [facility] INDICATION: T14.90XA: Trauma ADDITIONAL CLINICAL INFORMATION: Ordering Provider Reason For Exam: trauma Technologist Note: Additional: COMPARISON: None. FINDINGS: No acute fracture, dislocation, or osseous erosion.The Bohler angle measures 39 degrees. The joint spaces are preserved. Bone density and texture are normal. No soft tissue swelling is present. No radiopaque foreign body is detected. IMPRESSION: No acute fracture or dislocation identified. Report dictated by Daryn Francis MD, PhD (md do resident urgent care). EM Pedro MD have personally reviewed and interpreted this examination/study. > Interpreting Provider: EM RAMIREZ MD on 02/23/2023 6:05 AM Hasmukh Sotelo MD DIAGNOSTIC IMAGING O RDERABLES * XR ELBOW LEFT 2VW (02/22/2023 8:53 PM CDT) Only the most recent of2 resultswithin the time period is included. Anatomical Region Laterality Modality Upper Extremity Radiographic Aury ging 02/22/2023 9:21 PM CDT Impressions 02/23/2023 6:03 AM CDT IMPRESSION: Open, comminuted, intra-articular distal humeral fracture status post closed reduction with improved osseous alignment. Small osseous fragments are indeterminate in the joint capsule. Small radial/olecranon fractures are not excluded. Recommend further characterization with CT elbow. Report dictated by Daryn Francis MD, PhD (md do resident urgent care). EM Pedro MD have personally reviewed and interpreted this examination/study. > Interpreting Provider: EM RAMIREZ MD on 02/23/2023 6:03 AM Narrative 02/23/2023 6:03 AM CDT PROCEDURE: XR ELBOW LEFT 2VW, DATE/TIME OF EXAM: 02/22/2023 8:54 PM, LOCATION [facility] INDICATION: T14.90XA: Trauma ADDITIONAL CLINICAL INFORMATION: Ordering Provider Reason For Exam: eval fx Technologist Note: Additional: COMPARISON: Left elbow radiograph from 02/22/2023, 1830 hours. FINDINGS: The patient is status post splinting and closed reduction of the supracondylar/intra-articular humeral fracture. Improved osseous alignment is noted. A splint partially obscures bony and soft tissue detail. Again, small osseous fragments in the joint capsule are indeterminate. Soft tissue edema is noted. Joint effusion is present. Subcutaneous gas is noted. Procedure Note Em Ramirez MD - 02/23/2023 PROCEDURE: XR ELBOW LEFT 2VW, DATE/TIME OF EXAM: 02/22/2023 8:54 PM, LOCATION [facility] INDICATION: T14.90XA: Trauma ADDITIONAL CLINICAL INFORMATION: Ordering Provider Reason For Exam: eval fx Technologist Note: Additional: COMPARISON: Left elbow radiograph from 02/22/2023, 1830 hours. FINDINGS: The patient is status post splinting and closed reduction of the supracondylar/intra-articular humeral fracture. Improved osseousalignment is noted. A splint partially obscures bony and soft tissue detail.Again, small osseous fragments in the joint capsule are indeterminate. Softtissue edema is noted. Joint effusion is present. Subcutaneous gas is noted. IMPRESSION: Open, comminuted, intra-articular distal humeral fracture status post closed reduction with improved osseous alignment. Small osseous fragments are indeterminate in the joint capsule. Small radial/olecranon fractures are not excluded. Recommend further characterization with CT elbow. Report dictated by Daryn Francis MD, PhD (md do resident urgent care). I, EM RAMIREZ MD have personally reviewed and interpreted this examination/study. > Interpreting Provider: EM RAMIREZ MD on 02/23/2023 6:03 AM Hasmukh Sotelo MD DIAGNOSTIC IMAGING O RDERABLES * CT CHEST ABDOMEN PELVIS W CONT - Abdomen-pelvis trauma, blunt or penetrating (02/22/2023 8:00 PM CDT) Anatomical Region Laterality Modality Chest, Abdomen, Pelvis Computed Tomography 02/22/2023 8:01 PM CDT Impressions 02/22/2023 10:58 PM CDT Impression: 1.No acute visceral, vascular, or osseus injury identified in the chest, abdomen, or pelvis. > Dictated by Erasmo Bocanegra MD, (md do resident urgent care). I, Kvng Vasquez have personally reviewed and interpreted this examination/study. > Interpreting Provider: Kvng Vasquez on 02/22/2023 10:58 PM Narrative 02/22/2023 10:58 PM CDT PROCEDURE: CT CHEST ABDOMEN PELVIS W CONT, DATE/TIME OF EXAM: 02/22/2023 8:01 PM, LOCATION [facility] INDICATION: Trauma ADDITIONAL CLINICAL INFORMATION: Ordering Provider Reason For Exam: Technologist Note: Additional: COMPARISON: None. TECHNIQUE: CT of the chest, abdomen, and pelvis was performed after the uneventful administration of 100 mL of Isovue 370 intravenous contrast according to standard protocol. Findings: Chest: Lower Neck and Axillae: Normal. Lungs: No pulmonary parenchymal or airway process is present. No suspicious pulmonary nodules are identified. No pleural fluid or pneumothorax is present. Heart and Pericardium: The cardiac chambers are normal in size. No pericardial fluid or thickening is present. Mediastinum and Mignon: No mediastinal hemorrhage is present. No enlarged lymph nodes are present. Thoracic Vasculature: No vascular abnormality is present. Abdomen/pelvis: Liver: Normal. Gallbladder and Bile Ducts: Normal. Spleen: Multiple hypoattenuating lesions are seen in the spleen, too small to characterize, favored to represent simple cysts. Incidental mildly enlarged spleen measuring up to 14.9 cm in the AP dimension. Pancreas: Normal. Adrenals: Normal. Kidneys: Normal. Gastrointestinal: The stomach and visualized loops of large and small bowel are unremarkable. The appendix is not seen; however, no inflammatory changes are seen in the right lower quadrant. Mesentery/Peritoneum/Retroperitoneum: No free intraperitoneal air. No free fluid in the abdomen or pelvis. Bladder: Normal. Reproductive Organs: The prostate is normal. Abdominal Vasculature: No vascular abnormality is present. Bones: Bone windows demonstrate no suspicious lytic or blastic lesions. The visible osseous structures are intact. Soft tissues: Normal. Procedure Note Kvng Vasquez MD - 02/22/2023 PROCEDURE: CT CHEST ABDOMEN PELVIS W CONT, DATE/TIME OF EXAM:02/22/2023 8:01 PM, LOCATION [facility] INDICATION: Trauma ADDITIONAL CLINICAL INFORMATION: Ordering Provider Reason For Exam: Technologist Note: Additional: COMPARISON: None. TECHNIQUE: CT of the chest, abdomen, and pelvis was performed after the uneventful administration of 100 mL of Isovue 370 intravenous contrast according to standard protocol. Findings: Chest: Lower Neck and Axillae: Normal. Lungs: No pulmonary parenchymal or airway process is present. No suspicious pulmonary nodules are identified. No pleural fluid or pneumothorax is present. Heart and Pericardium: The cardiac chambers are normal in size. No pericardial fluid orthickening is present. Mediastinum and Mignon: No mediastinal hemorrhage is present. No enlarged lymph nodes arepresent. Thoracic Vasculature: No vascular abnormality is present. Abdomen/pelvis: Liver: Normal. Gallbladder and Bile Ducts: Normal. Spleen: Multiple hypoattenuating lesions are seen in the spleen, too small to characterize, favored to represent simple cysts. Incidental mildlyenlarged spleen measuring up to 14.9 cm in the AP dimension. Pancreas: Normal. Adrenals: Normal. Kidneys: Normal. Gastrointestinal: The stomach and visualized loops of large and small bowel areunremarkable. The appendix is not seen; however, no inflammatory changes are seen inthe right lower quadrant. Mesentery/Peritoneum/Retroperitoneum: No free intraperitoneal air. No free fluid in the abdomen or pelvis. Bladder: Normal. Reproductive Organs: The prostate is normal. Abdominal Vasculature: No vascular abnormality is present. Bones: Bone windows demonstrate no suspicious lytic or blastic lesions. The visible osseous structures are intact. Soft tissues: Normal. Impression: 1.No acute visceral, vascular, or osseus injury identified in the chest, abdomen, or pelvis. > Dictated by Erasmo Bocanegra MD, (md do resident urgent care). Kvng Pedro have personally reviewed and interpreted this examination/study. > Interpreting Provider: Kvng Vasquez on 02/22/2023 10:58 PM Dean Álvarez MD CT ORDERABLES * CT LUMBAR SPINE WO CONTRAST - T/L-spine trauma, Spine fracture (02/22/2023 8:00 PM CDT) Anatomical Region Laterality Modality Spine Computed Tomogra phy 02/22/2023 9:21 PM CDT Impressions 02/22/2023 9:25 PM CDT IMPRESSION: No thoracolumbar fracture > Interpreting Provider: Lexa Arriaga MD on 02/22/2023 9:25 PM Narrative 02/22/2023 9:25 PM CDT PROCEDURE: CT THORACIC SPINE WO CONTRAST, CT LUMBAR SPINE WO CONTRAST DATE/TIME OF EXAM: 02/22/2023 8:01 PM CLINICAL INFORMATION: None relevant/not provided if blank. Indication: Trauma Additional History: COMPARISON: None. TECHNIQUE: CT of the thoracolumbar spine was reconstructed from CT chest, abdomen and pelvis FINDINGS: Thoracolumbar alignment is normal. There are no compression fractures or suspicious lytic or blastic lesions. Posterior vertebral elements appear intact. There is no severe spinal canal or neuroforaminal stenosis. Please see CT of the chest, abdomen and pelvis for soft tissue findings. Procedure Note Lexa Arriaga MD - 02/22/2023 PROCEDURE: CT THORACIC SPINE WO CONTRAST, CT LUMBAR SPINE WO CONTRAST DATE/TIME OF EXAM: 02/22/2023 8:01 PM CLINICAL INFORMATION: None relevant/not provided if blank. Indication: Trauma Additional History: COMPARISON: None. TECHNIQUE: CT of the thoracolumbar spine was reconstructed from CT chest, abdomenand pelvis FINDINGS: Thoracolumbar alignment is normal. There are no compression fracturesor suspicious lytic or blastic lesions. Posterior vertebral elementsappear intact. There is no severe spinal canal or neuroforaminal stenosis. Please see CT of the chest, abdomen and pelvis for soft tissue findings. IMPRESSION: No thoracolumbar fracture > Interpreting Provider: Lexa Arriaga MD on 02/22/2023 9:25 PM Dean Álvarez MD CT ORDERABLES * CT THORACIC SPINE WO CONTRAST - T/L-spine trauma, spine fracture (02/22/2023 8:00 PM CDT) Anatomical Region Laterality Modality Spine Computed Tomogra phy 02/22/2023 9:21 PM CDT Impressions 02/22/2023 9:25 PM CDT IMPRESSION: No thoracolumbar fracture > Interpreting Provider: Lexa Arriaga MD on 02/22/2023 9:25 PM Narrative 02/22/2023 9:25 PM CDT PROCEDURE: CT THORACIC SPINE WO CONTRAST, CT LUMBAR SPINE WO CONTRAST DATE/TIME OF EXAM: 02/22/2023 8:01 PM CLINICAL INFORMATION: None relevant/not provided if blank. Indication: Trauma Additional History: COMPARISON: None. TECHNIQUE: CT of the thoracolumbar spine was reconstructed from CT chest, abdomen and pelvis FINDINGS: Thoracolumbar alignment is normal. There are no compression fractures or suspicious lytic or blastic lesions. Posterior vertebral elements appear intact. There is no severe spinal canal or neuroforaminal stenosis. Please see CT of the chest, abdomen and pelvis for soft tissue findings. Procedure Note Lexa Arriaga MD - 02/22/2023 PROCEDURE: CT THORACIC SPINE WO CONTRAST, CT LUMBAR SPINE WO CONTRAST DATE/TIME OF EXAM: 02/22/2023 8:01 PM CLINICAL INFORMATION: None relevant/not provided if blank. Indication: Trauma Additional History: COMPARISON: None. TECHNIQUE: CT of the thoracolumbar spine was reconstructed from CT chest, abdomenand pelvis FINDINGS: Thoracolumbar alignment is normal. There are no compression fracturesor suspicious lytic or blastic lesions. Posterior vertebral elementsappear intact. There is no severe spinal canal or neuroforaminal stenosis. Please see CT of the chest, abdomen and pelvis for soft tissue findings. IMPRESSION: No thoracolumbar fracture > Interpreting Provider: Lexa Arriaga MD on 02/22/2023 9:25 PM Dean Álvarez MD CT ORDERABLES * CT CERVICAL SPINE WO CONTRAST - C-Spine Trauma, Spine fracture (02/22/2023 8:00 PM CDT) Anatomical Region Laterality Modality Spine Computed Tomogra phy 02/22/2023 9:17 PM CDT Impressions 02/22/2023 9:19 PM CDT IMPRESSION: No evidence for cervical spine fracture or traumatic malalignment. > Interpreting Provider: Lexa Arriaga MD on 02/22/2023 9:19 PM Narrative 02/22/2023 9:19 PM CDT PROCEDURE: CT CERVICAL SPINE WO CONTRAST DATE/TIME OF EXAM: 02/22/2023 8:01 PM CLINICAL INFORMATION: None relevant/not provided if blank. Indication: Trauma Additional History: COMPARISON: None. TECHNIQUE: CT of the cervical spine was performed utilizing standard protocol. Sagittal and coronal reformatted images were rendered. CT dose reduction technique was used, including Automated Exposure Control. FINDINGS: Alignment is normal. There are no compression fractures or suspicious lytic or blastic lesions. Posterior vertebral elements appear intact. There is no severe spinal canal or neuroforaminal stenosis. No soft tissue abnormality. Procedure Note Lexa Arriaga MD - 02/22/2023 PROCEDURE: CT CERVICAL SPINE WO CONTRAST DATE/TIME OF EXAM: 02/22/2023 8:01 PM CLINICAL INFORMATION: None relevant/not provided if blank. Indication: Trauma Additional History: COMPARISON: None. TECHNIQUE: CT of the cervical spine was performed utilizing standard protocol. Sagittal and coronal reformatted images were rendered. CT dose reduction technique was used, including Automated ExposureControl. FINDINGS: Alignment is normal. There are no compression fractures or suspicious lytic or blastic lesions. Posterior vertebral elements appear intact. There is no severe spinal canal or neuroforaminal stenosis. No softtissue abnormality. IMPRESSION: No evidence for cervical spine fracture or traumatic malalignment. > Interpreting Provider: Lexa Arriaga MD on 02/22/2023 9:19 PM Dean Álvarez MD CT ORDERABLES * CT HEAD WO CONTRAST - Head Trauma, CSF leak, mental status changes (02/22/2023 8:00 PM CDT) Anatomical Region Laterality Modality Head Computed Tomogra phy 02/22/2023 8:36 PM CDT Impressions 02/22/2023 8:37 PM CDT IMPRESSION: No intracranial hemorrhage or other acute abnormality by CT. > Interpreting Provider: Lexa Arriaga MD on 02/22/2023 8:37 PM Narrative 02/22/2023 8:37

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
--- OUTSIDE RECORDS SUMMARY | 2024-07-05 08:17 | XMS_ITS | Referral Summary ---
Author Organization [facility] Address [address] [place] [address] Care Team Providers Care Cafeteria Director Name Role Phone Unknown, Provider Primary Care Provider Unavaila ble Source Comments [facility],non-owned Affiliates and Associated Physician Practices is amultiple site organization consisting of ambulatory clinics and hospital sitesin [place], [place], [place] and [place]. This disclosure is being madepursuant to the Care Everywhere program and may not contain all information available regarding this patient. Last updated 18.[employer] [facility] Allergies No known active allergies Medications * [...] Recorded Patient Health Questionnaire-2 Score 0 06/27/2023 [facility] Occupat ional Health - Occupational Stress [...] place to sleep or slept in a jail (including now)? No 02/23/2023 Sex and Gender [...] 81.6 kg (180 lb) 06/27/2023 1:11 PM [facility] Height 182.9 cm (6') 04/18/2023 1:58 PM [facility] Body Mass Index 24.41 04/18/2023 1:58 PM [facility] Functional Status Functional Status Response Date of Assess ment Is person deaf or have serious hearing difficult y? No 02/23/2023 Is person blind or have serious difficulty seein g? No 02/23/2023 Does person have serious dif ficulty walking/climbing stairs? No 02/23/2023 Does person have difficulty dressing/bathing? No 02/23/2023 Does person have difficulty doing errands alone? No 02/23/2023 Cognitive Status Response Date of Assessm ent Does person have difficulty concentrating/remembering/making decisions? No 02/23/2023 Plan of Treatment Not on file Medical Devices Implanted Type Area Advertising Agency Manager Device Identifier Shelf Expiration Date Model / Serial / Lot Pin Fx 40mm 1.5mm Spn Poly L Lac Acd Implanted:Qty: 1 on 02/23/2023 by Dean Zelaya MD at [facility] Left: Elbow [employer] [id number] / / Screw 3.5mm 22mm Ft Hex Drv Nlckg Pranav Implanted:Qty: 1 on 02/23/2023 by Dean Zelaya MD at [facility] Left: Elbow [employer] [id number] / / Screw 3.5mm 24mm Ft Nonlock Hex Drv Elb Implanted:Qty: 1 on 02/23/2023 by Dean Zelaya MD at [facility] Left: Elbow [employer] 4 / / Graft Bone Ac Cnxs Dbm 10ml Ptty Syr - [id number] Implanted:Qty: 1 on 02/23/2023 by Dean Zelaya MD at [facility] Left: Elbow [employer] 01/16/2024 02-3000-100 / [id number] / [id number] Screw 3.5mm 42mm Slf-Tap Cortx Evos Strl Implanted:Qty: 1 on 02/23/2023 by Dean Zelaya MD at [facility] Left: [employer] [id number] / / Screw 3.5mm 28mm Slf-Tap Cortx Evos Strl Implanted:Qty: 2 on 02/23/2023 by Dean Zelaya MD at [facility] Left: [employer] [id number] / / Scrw 3.5mm 18mm Slf-Tap Cortx Evos Strl Implanted:Qty: 3 on 02/23/2023 by Dean Zelaya MD at [facility] Left: [employer] [id number] / / Screw 3.5mm 20mm Slf-Tap Cortx Evos Strl Implanted:Qty: 3 on 02/23/2023 by Dean Zelaya MD at [facility] Left: [employer] [id number] / / Screw 3.5mm 22mm Slf-Tap Cortx Evos Strl Implanted:Qty: 1 on 02/23/2023 by Dean Zelaya MD at [facility] Left: [employer] [id number] / / Screw 3.5mm 24mm Slf-Tap Cortx Evos Strl Implanted:Qty: 1 on 02/23/2023 by Dean Zelaya MD at [facility] Left: [employer] [id number] / / Pin Fx 40mm 1.5mm Spn Poly L Lac Acd Implanted:Qty: 1 on 02/23/2023 by Dean Zelaya MD at [facility] Left: Elbow [employer] [id number] / / Screw 2.7mm 4.5mm 24mm T7 Slfret Scrdrvr Implanted:Qty: 1 on 02/23/2023 by Dean Zelaya MD at [facility] Left: [employer] [id number] / / Screw 2.7mm 4.3mm 24mm T8 2mm Slf-Tap Implanted:Qty: 1 on 02/23/2023 by Dean Zelaya MD at [facility] Left: [employer] [id number] / / Screw 2.7mm 4.5mm 22mm T8 Slf-Tap Cortx Implanted:Qty: 1 on 02/23/2023 by Dean Zelaya MD at [facility] Left: [employer] [id number] / / Screw 2.7mm 4.5mm 20mm T8 Slf-Tap Cortx Implanted:Qty: 1 on 02/23/2023 by Dean Zelaya MD at [facility] Left: [employer] [id number] / / Screw 2.7mm 4.3mm 50mm T8 Lck Slf Rtn Implanted:Qty: 1 on 02/23/2023 by Dean Zelaya MD at [facility] Left: [employer] [id number] / / 2h Oleeranon Plate Implanted:Qty: 1 on 02/23/2023 by Dean Zelaya MD at [facility] Left: H[employer] [id number] / / 10 H Humerous Plate Implanted:Qty: 1 on 02/23/2023 by Dean Zelaya MD at [facility] Left: [employer] [id number] / / Screw 3.5mm 34mm 2.2mm Mldir Lck Sq Drv Implanted:Qty: 1 on 02/23/2023 by Dean Zelaya MD at [facility] Left: Elbow [employer] 4 / / Screw 3.5mm 40mm 2.2mm Slf-Tap Tip Lck Implanted:Qty: 1 on 02/23/2023 by Dean Zelaya MD at [facility] Left: Elbow [employer] 0 / / Screw 3.5mm 14mm T15 Slf-Tap Tip Lck Implanted:Qty: 1 on 02/23/2023 by Dean Zelaya MD at [facility] Left: Elbow [employer] 4 / / Screw 3.5mm 26mm T15 Lck Lopro Slf-Tap Implanted:Qty: 1 on 02/23/2023 by Dean Zelaya MD at [facility] Left: Elbow [employer] [id number] / / Screw 3.5mm 36mm T15 Slf-Tap Lck Lopro Implanted:Qty: 1 on 02/23/2023 by Dean Zelaya MD at [facility] Left: Elbow [employer] [id number] / / Plate 13 Hl Lopro Prox Blt Tip Hum Lt Implanted:Qty: 1 on 02/23/2023 by Dean Zelaya MD at [facility] Left: Elbow [employer] 7 / / Screw 3.5mm 14mm Ft Slf-Tap Lopro Head Implanted:Qty: 1 on 02/23/2023 by Dean Zelaya MD at [facility] Left: Elbow [employer] 4 / / Explanted Type Area Advertising Agency Manager Device Identifier Shelf Expiration Date Model / Serial / Lot Screw 3.5mm 44mm T15 Slf-Tap Lck Tpr Explanted:Qty: 1 on 02/23/2023 at [facility] Left: Elbow [employer] [id number] / / Screw 2.7mm 4.5mm 20mm T7 Slfret Scrdrvr Explanted:Qty: 1 on 02/23/2023 by Dean Zelaya MD at [facility] Left: [employer] [id number] / / Screw 2.7mm 4.5mm 22mm T7 Slfret Scrdrvr Explanted:Qty: 1 on 02/23/2023 by Dean Zelaya MD at [facility] Left: [employer] [id number] / / Advance Directives * Full Code (Latest Code Status on File) Date Activated Date Inactivated Comments 02/22/2023 7:19 PM 02/26/2023 2:05 PM Care Teams Cafeteria Director Relationship Specialty Start Date End Date Unknown, Provider PCP - General 02/23/23
[2024-07-05 08:25] VITALS: BP 148/86; PULSE 62; RESP 18; TEMP 36.7; O2SAT 100
== END 2024-07-05 08:33 | disposition home or self-care (01) ==
PROVIDERS: Emergency Provider Nurse Practitioner Family
DX: H66.002 Acute suppurative otitis media without spontaneous rupture of ear drum, left ear (principal)
CPT/HCPCS: 99213; G0463